=== PATIENT | female | born 1995 | race Hispanic/Latino ===

== ENCOUNTER 2017-08-25 01:25 | Emergency (ER) | payer OTHER ==
[2017-08-25 01:37] VITALS: BMI 22.4
[2017-08-25] MEDS ORDERED: Sodium Chloride 0.9% 1,000 ML IV STA (01:37)
[2017-08-25 01:58] VITALS: BP 115/73; PULSE 79; RESP 16; TEMP 98.6; O2SAT 100
[2017-08-25 02:14] LABS: HEMATOCRIT 36.5 % (34.0-47.0); MEAN CORPUSCULAR HEMOGLOBIN 28.4 pg (27.0-31.0); MEAN CORPUSCULAR HGB CONC 32.3 g/dL (33.0-37.0); RED CELL DISTRIBUTION WIDTH 13.6 % (11.5-14.5); WHITE BLOOD COUNT 6.5 K/uL (4.8-10.8)
[2017-08-25 02:40] LABS: ALB/GLOB RATIO 1.2 (1.0-2.1); ALCOHOL SERUM 216 mg/dl (0-10); ALKALINE PHOSPHATASE 42 U/L (38-126); ALT/SGPT 37 U/L (9-52); AST/SGOT 31 U/L (14-36); BILIRUBIN,TOTAL 0.3 mg/dl (0.2-1.3); BLOOD UREA NITROGEN 9 mg/dl (7-17); CALCIUM 8.8 mg/dL (8.4-10.2); CARBON DIOXIDE 23 mmol/L (22-30); CHLORIDE 109 mmol/L (98-107); GFR AFRICAN-AMERICAN > 60; GLUCOSE,RANDOM 100 mg/dL (65-105); POTASSIUM 3.2 MMOL/L (3.6-5.0); SODIUM 147 mmol/l (132-148); TOTAL PROTEIN 7.3 G/DL (6.3-8.2)
--- NOTE | 2017-08-25 03:18 | ED PDOC ---
HPI: Psych/Substance Abuse Time Seen by Provider: 08/25/17 01:30 Chief Complaint (Nursing): Alcohol Ingestion Chief Complaint (Provider): Alcohol Ingestion History Per: Patient History/Exam Limitations: no limitations Onset/Duration Of Symptoms: Mins (prior to arrival) Current Symptoms Are (Timing): Still Present Additional Complaint(s): Ewa Sellers is a 22 year old female who presents to the emergency department via EMS for an evaluation of intoxication status post "drinking too much vodka" and vomiting at a club prior to arrival. A bystander witnessed patient continuing to vomit after she was kicked out of club then proceeded to call 911. PMD: none provided Past Medical History Reviewed: Historical Data, Nursing Documentation, Vital Signs Vital Signs: Last Vital Signs Temp 98.6 F 08/25/17 01:42 Pulse 79 08/25/17 01:42 Resp 16 08/25/17 01:42 BP 115/73 08/25/17 01:42 Pulse Ox 100 08/25/17 01:42 - Medical History PMH: No Chronic Diseases - Surgical History Surgical History: No Surg Hx - Family History Family History: States: Unknown Family Hx - Social History Current smoker - smoking cessation education provided: No Ex-Smoker (has not smoked in the last 12 months): No Alcohol: Social Drugs: Denies - Allergies Allergies/Adverse Reactions: Allergies Allergy/AdvReac Type Severity Reaction Status Date / Time No Known Allergies Allergy Verified 08/25/17 01:42 Review of Systems ROS Statement: Except As Marked, All Systems Reviewed And Found Negative Gastrointestinal: Positive for: Vomiting Physical Exam - Reviewed Nursing Documentation Reviewed: Yes Vital Signs Reviewed: Yes - Physical Exam Appears: Positive for: Well, Non-toxic, No Acute Distress Head Exam: Positive for: ATRAUMATIC, NORMAL INSPECTION, NORMOCEPHALIC Cardiovascular/Chest: Positive for: Regular Rate, Rhythm. Negative for: Chest Non Tender Respiratory: Positive for: Normal Breath Sounds, Accessory Muscle Use. Negative for: Decreased Breath Sounds, Respiratory Distress Gastrointestinal/Abdominal: Positive for: Normal Exam, Bowel Sounds, Soft, Other (vomit noted on shirt). Negative for: Tenderness, Mass Neurologic/Psych: Positive for: Alert, Oriented - Laboratory Results Result Diagrams: 08/25/17 01:50 08/25/17 01:50 - ECG O2 Sat by Pulse Oximetry: 100 (RA) Pulse Ox Interpretation: Normal Medical Decision Making Medical Decision Making: Initial Impression: Intoxication Initial Plan: * Alcohol serum * CMP * CBC * NS 1,000ml IV per 1,000mls/hr * Zofran INJ 4mg IV Scribe Attestation: Documented by Melissa Mcnamara, acting as a scribe for Mejia Segal MD. Provider Scribe Attestation: All medical record entries made by the Scribe were at my direction and personally dictated by me. I have reviewed the chart and agree that the record accurately reflects my personal performance of the history, physical exam, medical decision making, and the department course for this patient. I have also personally directed, reviewed, and agree with the discharge instructions and disposition. Disposition - Clinical Impression Clinical Impression: Alcohol abuse with intoxication - Patient ED Disposition Is Patient to be Admitted: No Counseled Patient/Family Regarding: Diagnosis - Disposition Referrals: [facility] [Outside] Disposition: Routine/Home Disposition Time: 03:42 Condition: STABLE Instructions: Alcohol Intoxication (ED) Forms: [employer] (Macedonian)
== END 2017-08-25 04:50 | disposition home or self-care (01) ==
LOC: H.ER 01:25
DX: F10.129 Alcohol abuse with intoxication, unspecified (principal); Y90.8 Blood alcohol level of 240 mg/100 ml or more
CPT/HCPCS: 80053; 80320; 82948; 85027; 96374; 99282; J2405; J7040